=== PATIENT | male | born 1980 | race Caucasian/White ===

== ENCOUNTER → 2020-03-15 10:31 | Outpatient (CLI) | payer OTHER, SELFPAY ==
--- NOTE | 2020-03-15 10:33 | DI.RAD.S_ITS ---
PROCEDURE: XR KNEE LT 3V INDICATIONS: LEFT KNEE PAIN TECHNIQUE: Three views of the knee were acquired. COMPARISON: None. FINDINGS: Bones: There is a stellate, comminuted minimally displaced patellar fracture. Bone alignment remains normal. No suspicious bony lesions. Soft tissues: Large joint effusion. No suspicious soft tissue calcifications. IMPRESSION: 1. Comminuted, minimally displaced patellar fracture. 2. Large joint effusion. Dictated by: Brandee Graves M.D. on 03/15/2020 at 10:07 Approved by: Brandee Graves M.D. on 03/15/2020 at 10:08
== END ==
PROVIDERS: Referring Provider Physician Assistant; Visit Provider Physician Assistant
DX: M25.562 Pain in left knee (principal); S82.042A Displaced comminuted fracture of left patella, initial encounter for closed fracture; M25.462 Effusion, left knee; X58.XXXA Exposure to other specified factors, initial encounter
CPT/HCPCS: 73562

== ENCOUNTER → 2020-12-29 07:48 | Outpatient (CLI) | payer BC, SELFPAY ==
[2020-12-29] MEDS: COVID-19 VACC, Ad26(JANSSEN)/PF 0.5 ML IM (07:56)
== END ==
PROVIDERS: Visit Provider Internal Medicine
DX: Z23 Encounter for immunization (principal)
CPT/HCPCS: 0031A; 91303

== ENCOUNTER → 2022-12-17 12:34 | Outpatient (CLI) | payer OTHER, BC, SELFPAY ==
--- NOTE | 2022-12-17 12:37 | DI.MRI.S_ITS ---
PROCEDURE: MR LUMBAR SPINE WO CON INDICATIONS: Radiculopathy, lumbar region TECHNIQUE: Noncontrast sagittal T1 spin echo and T2 fast echo, sagittal STIR, and T2 fast spin echo through the lumbar spine. In cases with scoliosis, additional coronal T2 fast spin echo may be performed. COMPARISON: None. FINDINGS: Image quality: Excellent. Alignment and Curvature: No plain films are available for comparison, for numbering purposes. Thus, for the purposes of this examination, 5 lumbar type vertebral bodies will be presumed, as denoted on the montage panel. This should be confirmed and correlated with plain films, prior to any lumbar spinal intervention. 2 mm of retrolisthesis of L5 on S1. Bone Marrow: Marrow is of normal overall signal. No acute vertebral body compression fractures. Mild reactive signal within the endplates adjacent to the L5-S1 intervertebral disc. Spinal Cord: Conus medullaris terminates at the lower L1 level. Visualized cord demonstrates normal signal and size. Paraspinous Soft Tissues: No paravertebral masses. T12-L1: Normal appearance. L1-L2: Normal appearance. L2-L3: Normal appearance. L3-L4: Mild facet hypertrophy. No significant canal nor foraminal stenosis. L4-L5: Mild facet hypertrophy. No significant canal nor foraminal stenosis. L5-S1: Moderate disc height loss and desiccation. Mild diffuse disc bulge with superimposed left paracentral disc extrusion. Mild facet and ligamentum flavum hypertrophy. Moderate to severe canal stenosis. Compression of the left S1 and S2 nerve roots. IMPRESSION: 1. L5-S1 disc extrusion causing canal stenosis and neural impingement as described above. 2. 5 lumbar type vertebral bodies were presumed for the current report. Plain films of the lumbar spine are recommended for confirmation, prior to any lumbar spinal intervention. Dictated by: Ollie Peterson M.D. on 12/17/2022 at 13:44 Transcribed by: NADYA on 12/17/2022 at 13:46 Approved by: Ollie Peterson M.D. on 12/17/2022 at 16:10
== END ==
PROVIDERS: PCP Physician Assistant Medical; Referring Provider Physician Assistant Medical; Visit Provider Physician Assistant Medical
DX: M51.16 Intervertebral disc disorders with radiculopathy, lumbar region (principal)
CPT/HCPCS: 72148